=== PATIENT | female | born 1950 | race Caucasian/White ===

== ENCOUNTER 2018-06-09 15:42 | Observation (INO) ==
[2018-06-09 16:26] LABS: Basophils # 0.1 10*3/uL (0.0-0.2); Basophils % 0.7 % (0.0-0.8); Eosinophils # 0.2 10*3/uL (0.0-0.87); Eosinophils % 1.5 % (0.00-10.9); Hematocrit 41.3 VOL% (35.7-47.0); Hemoglobin 12.7 GM/DL (12.0-16.0); Immature Granulocytes % 0.5 %; Immature Granulocytes Absolute 0.05 #; Lymphocytes # 2.5 10*3/uL (1.4-4.0); Lymphocytes % 24.6 % (21.3-54.2); Mean Corpuscular HGB Conc 30.8 GM/DL (32-36); Mean Corpuscular Hemoglobin 26 PG (27-34); Mean Corpuscular Volume 85.9 FL (87-102); Mean Platelet Volume 12.5 FL (9.6-12.0); Monocytes # 0.9 10*3/uL (0.11-0.8); Monocytes % 9.3 % (1.7-12.7); Neutrophils # 6.4 10*3/uL (1.4-7.4); Neutrophils % 63.4 % (38.7-73.9); Platelet Count 447 T/CUMM (130-400); Red Blood Count 4.81 MC/CUMM (3.8-5.5); Red Cell Distribution Width 15.9 % (9.3-17.3); White Blood Count 10.1 T/CUMM (4-12)
[2018-06-09 16:47] LABS: Alanine Aminotransferase 28 U/L (13-56); Albumin 3.8 G/DL (3.4-5.0); Alkaline Phosphatase 108 U/L (45-117); Aspartate Amino Transferase 27 U/L (0-37); Blood Urea Nitrogen 63 MG/DL (7-18); Calcium 9.1 MG/DL (8.5-10.1); Glucose 137 MG/DL (74-106); Osmolality,Calculated 281.7 MOS/KG (273-304); Potassium 4.4 MMOL/L (3.5-5.1); Sodium 131 MMOL/L (136-145); Total Protein 8.3 G/DL (6.4-8.3); Troponin I < 0.015 NG/ML (0.00-0.045)
[2018-06-09] MEDS ORDERED: SODIUM CHLORIDE 0.9% 1,000 ML IV STA (18:21)
[2018-06-09 20:13] LABS: Troponin I < 0.015 NG/ML (0.00-0.045)
[2018-06-09] MEDS ORDERED: ACETAMINOPHEN 325 MG TABLET PO PRN (20:29)
[2018-06-09] MEDS ORDERED: PNEUMOCOCCAL VACCINE (13 VALENT) 0.5 ML SYRINGE IM ONE (20:48)
[2018-06-09] MEDS: HYOSCYAMINE 0.125 MG TABLET SL SCH (20:58)
[2018-06-09] MEDS: SODIUM CHLORIDE 0.9% 1,000 ML IV SCH (20:58)
[2018-06-09] MEDS ORDERED: ENOXAPARIN 30 MG/0.3 ML SYRINGE SUBCUT SCH (21:00)
[2018-06-10 00:44] LABS: Apearance,Urine Slightly Hazy (Clear); Bilirubin,Urine Negative (Negative); Blood, Urine Negative (Negative); Glucose,Urine (UA) Negative (Negative); Ketones,Urine Negative (Negative); Nitrite,Urine Negative (Negative); Protein,Urine Negative; Urine Color Yellow (Yellow); Urine Urobilinogen < 2.0 EU/DL (0.2-1.0)
[2018-06-10 00:53] LABS: WBC,Urine 0.1 /HPF (0-6)
[2018-06-10 05:07] LABS: Basophils % 0.6 % (0.0-0.8); Eosinophils # 0.2 10*3/uL (0.0-0.87); Eosinophils % 3.3 % (0.00-10.9); Hematocrit 33.8 VOL% (35.7-47.0); Immature Granulocytes % 0.6 %; Immature Granulocytes Absolute 0.04 #; Lymphocytes # 2.3 10*3/uL (1.4-4.0); Lymphocytes % 35.5 % (21.3-54.2); Mean Corpuscular HGB Conc 29.6 GM/DL (32-36); Mean Corpuscular Hemoglobin 26 PG (27-34); Mean Corpuscular Volume 87.6 FL (87-102); Mean Platelet Volume 12.8 FL (9.6-12.0); Monocytes # 0.7 10*3/uL (0.11-0.8); Monocytes % 10.9 % (1.7-12.7); Neutrophils # 3.2 10*3/uL (1.4-7.4); Neutrophils % 49.1 % (38.7-73.9); Platelet Count 305 T/CUMM (130-400); Red Blood Count 3.86 MC/CUMM (3.8-5.5); Red Cell Distribution Width 15.8 % (9.3-17.3); White Blood Count 6.4 T/CUMM (4-12)
[2018-06-10 05:27] LABS: Blood Urea Nitrogen 53 MG/DL (7-18); Glucose 90 MG/DL (74-106); Osmolality,Calculated 290.5 MOS/KG (273-304); Potassium 4.2 MMOL/L (3.5-5.1); Sodium 139 MMOL/L (136-145); Troponin I < 0.015 NG/ML (0.00-0.045)
[2018-06-10] MEDS: SODIUM CHLORIDE 0.9% 1,000 ML IV SCH (06:31)
[2018-06-10] MEDS: HYOSCYAMINE 0.125 MG TABLET SL SCH ×2 (08:58→12:27)
[2018-06-10] MEDS ORDERED: DULoxetine 30 MG CAPSULE PO SCH (09:00)
[2018-06-10] MEDS ORDERED: PANTOPRAZOLE 40 MG TABLET PO SCH (09:00)
[2018-06-10 12:44] VITALS: BP 121/48
[2018-06-15] MEDS ORDERED: ERGOCALCIFEROL 50,000 UNIT CAPSULE PO SCH (09:00)
== END 2018-06-10 14:10 | disposition home or self-care (01) ==
LOC: N.EDINP 15:42 → N.ED 15:42 → SUATTDRO 18:43 → N.2E 19:44
PROVIDERS: ADMIT Internal Medicine; ATTEND Internal Medicine

== ENCOUNTER 2018-11-25 14:01 | Inpatient (IN) ==
[2018-11-25] MEDS ORDERED: ONDANSETRON 4 MG/2 ML VIAL IV STA (14:54)
[2018-11-25] MEDS ORDERED: SODIUM CHLORIDE 0.9% 1,000 ML IV STA (14:54)
[2018-11-25] MEDS: HYDROmorphone 2 MG/1 ML VIAL IV PRN ×5 (15:09→22:30)
[2018-11-25 15:10] LABS: Basophils % 0.5 % (0.0-0.8); Eosinophils # 0.2 10*3/uL (0.0-0.87); Eosinophils % 2.2 % (0.00-10.9); Hemoglobin 8.2 GM/DL (12.0-16.0); Immature Granulocytes % 0.5 %; Immature Granulocytes Absolute 0.04 #; Lymphocytes # 1.2 10*3/uL (1.4-4.0); Lymphocytes % 16.2 % (21.3-54.2); Mean Corpuscular HGB Conc 29.3 GM/DL (32-36); Mean Corpuscular Volume 80.5 FL (87-102); Mean Platelet Volume 11.4 FL (9.6-12.0); Monocytes % 8.2 % (1.7-12.7); NRBC # 0.02 10*3/uL; Neutrophils % 72.4 % (38.7-73.9); Platelet Count 239 T/CUMM (130-400); Red Blood Count 3.48 MC/CUMM (3.8-5.5); Red Cell Distribution Width 17.7 % (9.3-17.3); White Blood Count 7.3 T/CUMM (4-12)
[2018-11-25 15:32] LABS: Alanine Aminotransferase 18 U/L (13-56); Albumin 3.3 G/DL (3.4-5.0); Alkaline Phosphatase 63 U/L (45-117); Aspartate Amino Transferase 13 U/L (0-37); Bilirubin,Total < 0.39 MG/DL (0.2-1.0); Blood Urea Nitrogen 28 MG/DL (7-18); Calcium 8.7 MG/DL (8.5-10.1); Glucose 141 MG/DL (74-106); Osmolality,Calculated 286.4 MOS/KG (273-304)
[2018-11-25] MEDS ORDERED: GLUCAGON 1 MG VIAL IM PRN (17:20)
[2018-11-25] MEDS ORDERED: DEXTROSE 50% 25 GM/50 ML VIAL IV PRN (17:20)
[2018-11-25] MEDS: SODIUM CHLORIDE 0.45% 1,000 ML IV SCH (18:56)
[2018-11-25] MEDS: CIPROFLOXACIN INJ 400 MG in PREMIX 1 EACH IV SCH (18:56)
[2018-11-25] MEDS ORDERED: MAGNESIUM SULF RIDER 4 GM in PREMIX 1 EACH IV PRN (20:00)
[2018-11-25] MEDS: HYOSCYAMINE 0.125 MG TABLET SL PRN (22:06)
[2018-11-25] MEDS: metroNIDAZOLE INJ 500 MG in PREMIX 1 EACH IV SCH (22:08)
[2018-11-26] MEDS: HYDROmorphone 2 MG/1 ML VIAL IV PRN ×4 (02:05→19:55)
[2018-11-26] MEDS: metroNIDAZOLE INJ 500 MG in PREMIX 1 EACH IV SCH ×4 (02:07→19:57)
[2018-11-26] MEDS: HYOSCYAMINE 0.125 MG TABLET SL PRN ×3 (06:13→19:56)
[2018-11-26] MEDS: SODIUM CHLORIDE 0.45% 1,000 ML IV SCH ×2 (06:16→13:59)
[2018-11-26 06:24] LABS: Basophils % 0.3 % (0.0-0.8); Eosinophils # 0.2 10*3/uL (0.0-0.87); Eosinophils % 2.9 % (0.00-10.9); Hematocrit 25.8 VOL% (35.7-47.0); Hemoglobin 7.6 GM/DL (12.0-16.0); Immature Granulocytes % 0.4 %; Immature Granulocytes Absolute 0.03 #; Lymphocytes # 1.1 10*3/uL (1.4-4.0); Lymphocytes % 16.2 % (21.3-54.2); Mean Corpuscular HGB Conc 29.5 GM/DL (32-36); Mean Corpuscular Volume 80.9 FL (87-102); Monocytes % 9.1 % (1.7-12.7); Neutrophils % 71.1 % (38.7-73.9); Platelet Count 232 T/CUMM (130-400); Red Blood Count 3.19 MC/CUMM (3.8-5.5)
[2018-11-26 06:28] LABS: Folate > 24.0 NG/ML (5.4-24.0); Vitamin B12 265 PG/ML (211-911)
[2018-11-26 06:28] LABS: % Iron Saturation 8.4 % (18-50); Ferritin 2.9 ng/ml (8-252); Hypochromasia 1+; Platelet Estimate Adequate
[2018-11-26] MEDS: CIPROFLOXACIN INJ 400 MG in PREMIX 1 EACH IV SCH ×2 (07:53→17:26)
[2018-11-26] MEDS: FAMOTIDINE 20 MG/2 ML VIAL IV SCH (09:34)
[2018-11-27] MEDS: HYDROmorphone 2 MG/1 ML VIAL IV PRN ×5 (00:12→21:47)
[2018-11-27] MEDS: metroNIDAZOLE INJ 500 MG in PREMIX 1 EACH IV SCH ×4 (02:32→23:54)
[2018-11-27] MEDS: SODIUM CHLORIDE 0.45% 1,000 ML IV SCH ×3 (02:33→15:51)
[2018-11-27] MEDS: HYOSCYAMINE 0.125 MG TABLET SL PRN ×4 (04:19→21:55)
[2018-11-27] MEDS: CIPROFLOXACIN INJ 400 MG in PREMIX 1 EACH IV SCH ×2 (05:31→17:05)
[2018-11-27 05:46] LABS: Basophils % 0.4 % (0.0-0.8); Eosinophils # 0.2 10*3/uL (0.0-0.87); Eosinophils % 2.1 % (0.00-10.9); Hematocrit 28.3 VOL% (35.7-47.0); Immature Granulocytes % 0.4 %; Immature Granulocytes Absolute 0.04 #; Lymphocytes % 11.4 % (21.3-54.2); Mean Corpuscular HGB Conc 28.3 GM/DL (32-36); Mean Corpuscular Volume 81.6 FL (87-102); Mean Platelet Volume 11.9 FL (9.6-12.0); Monocytes % 6.7 % (1.7-12.7); Platelet Count 232 T/CUMM (130-400); Red Blood Count 3.47 MC/CUMM (3.8-5.5); Red Cell Distribution Width 17.8 % (9.3-17.3)
[2018-11-27 06:10] LABS: Hypochromasia 1+; Platelet Estimate Adequate
[2018-11-27 06:15] LABS: Alanine Aminotransferase 14 U/L (13-56); Albumin 2.7 G/DL (3.4-5.0); Alkaline Phosphatase 65 U/L (45-117); Aspartate Amino Transferase 15 U/L (0-37); Bilirubin,Total < 0.39 MG/DL (0.2-1.0); Blood Urea Nitrogen 11 MG/DL (7-18); Calcium 7.7 MG/DL (8.5-10.1); Glucose 107 MG/DL (74-106); Osmolality,Calculated 271.8 MOS/KG (273-304); Total Protein 6.1 G/DL (6.4-8.3)
[2018-11-27] MEDS: POTASSIUM CHLORIDE RIDER 10 MEQ in PREMIX 1 EACH IV PRN ×5 (09:26→21:50)
[2018-11-27] MEDS: FAMOTIDINE 20 MG/2 ML VIAL IV SCH (09:26)
[2018-11-27] MEDS ORDERED: ALBUTEROL 0.63 MG/3 ML NEB RESP TX PRN (11:02)
[2018-11-27] MEDS ORDERED: FUROSEMIDE 20 MG/2 ML VIAL IV ONE (12:16)
[2018-11-28] MEDS ORDERED: ACETAMINOPHEN 325 MG TABLET PO SCH ×2 (05:30→09:00)
[2018-11-28] MEDS: SODIUM CHLORIDE 0.45% 1,000 ML IV SCH ×2 (05:39→08:09)
[2018-11-28] MEDS: metroNIDAZOLE INJ 500 MG in PREMIX 1 EACH IV SCH ×3 (05:40→17:36)
[2018-11-28] MEDS ORDERED: ACETAMINOPHEN 325 MG TABLET PO PRN (06:30)
[2018-11-28] MEDS: HYDROmorphone 2 MG/1 ML VIAL IV PRN ×4 (06:38→21:53)
[2018-11-28] MEDS: HYOSCYAMINE 0.125 MG TABLET SL PRN ×3 (06:39→17:35)
[2018-11-28] MEDS: CIPROFLOXACIN INJ 400 MG in PREMIX 1 EACH IV SCH (06:42)
[2018-11-28 06:49] LABS: Basophils % 0.2 % (0.0-0.8); Eosinophils # 0.1 10*3/uL (0.0-0.87); Eosinophils % 1.4 % (0.00-10.9); Hematocrit 25.7 VOL% (35.7-47.0); Hemoglobin 7.3 GM/DL (12.0-16.0); Immature Granulocytes % 0.4 %; Immature Granulocytes Absolute 0.04 #; Lymphocytes # 1.2 10*3/uL (1.4-4.0); Lymphocytes % 13.1 % (21.3-54.2); Mean Corpuscular HGB Conc 28.4 GM/DL (32-36); Mean Corpuscular Volume 81.3 FL (87-102); Mean Platelet Volume 12.1 FL (9.6-12.0); Monocytes % 9.6 % (1.7-12.7); NRBC # 0.02 10*3/uL; Neutrophils % 75.3 % (38.7-73.9); Platelet Count 244 T/CUMM (130-400); Red Blood Count 3.16 MC/CUMM (3.8-5.5); Red Cell Distribution Width 18.1 % (9.3-17.3); White Blood Count 9.3 T/CUMM (4-12)
[2018-11-28 07:14] LABS: Anisocytosis 2+; Platelet Estimate Normal; Poikilocytosis 1+
[2018-11-28 07:16] LABS: Calcium 8.3 MG/DL (8.5-10.1); Osmolality,Calculated 273.8 MOS/KG (273-304)
[2018-11-28] MEDS: POTASSIUM CHLORIDE RIDER 10 MEQ in PREMIX 1 EACH IV PRN ×4 (10:30→19:42)
[2018-11-28] MEDS: FAMOTIDINE 20 MG/2 ML VIAL IV SCH (10:30)
[2018-11-28] MEDS: MAGNESIUM SULF RIDER 2 GM in PREMIX 1 EACH IV PRN (10:30)
[2018-11-28] MEDS ORDERED: FUROSEMIDE 20 MG/2 ML VIAL IV ONE (15:00)
[2018-11-28] MEDS: ONDANSETRON 4 MG/2 ML VIAL IV PRN (15:21)
[2018-11-28 15:26] LABS: Apearance,Urine CLEAR (Clear); Bacteria,Urine Occasional /HPF (Few); Bilirubin,Urine Negative (Negative); Blood, Urine Negative (Negative); Glucose,Urine (UA) Negative (Negative); Hyaline Casts,Urine 23 /LPF (0-3); Ketones,Urine Negative (Negative); Mucus,Urine Occasional /LPF (Occasional); Nitrite,Urine Negative (Negative); Protein,Urine Negative; RBC,Urine 1 /HPF (0-4); Squamous Epithelial Cell,Urine Occasional /HPF (0-10); Urine Color Yellow (Yellow); Urine Urobilinogen < 2.0 EU/DL (0.2-1.0)
[2018-11-28] MEDS: ALBUTEROL 0.63 MG/3 ML NEB RESP TX SCH (19:01)
[2018-11-28] MEDS: LEVOFLOXACIN INJ 750 MG in PREMIX 1 EACH IV SCH (21:48)
[2018-11-29] MEDS: metroNIDAZOLE INJ 500 MG in PREMIX 1 EACH IV SCH ×4 (00:32→17:11)
[2018-11-29] MEDS: ALBUTEROL 0.63 MG/3 ML NEB RESP TX SCH ×4 (01:57→19:04)
[2018-11-29] MEDS: HYDROmorphone 2 MG/1 ML VIAL IV PRN ×4 (02:06→22:39)
[2018-11-29] MEDS: HYOSCYAMINE 0.125 MG TABLET SL PRN ×3 (02:09→17:11)
[2018-11-29 05:23] LABS: Basophils % 0.4 % (0.0-0.8); Eosinophils # 0.3 10*3/uL (0.0-0.87); Eosinophils % 3.6 % (0.00-10.9); Hematocrit 24.8 VOL% (35.7-47.0); Hemoglobin 7.1 GM/DL (12.0-16.0); Immature Granulocytes % 0.5 %; Immature Granulocytes Absolute 0.04 #; Mean Corpuscular HGB Conc 28.6 GM/DL (32-36); Mean Corpuscular Volume 82.1 FL (87-102); Mean Platelet Volume 12.3 FL (9.6-12.0); Monocytes % 11.1 % (1.7-12.7); NRBC # 0.02 10*3/uL; Neutrophils % 71.4 % (38.7-73.9); Platelet Count 232 T/CUMM (130-400); Red Blood Count 3.02 MC/CUMM (3.8-5.5); Red Cell Distribution Width 18.6 % (9.3-17.3); White Blood Count 7.8 T/CUMM (4-12)
[2018-11-29 05:43] LABS: Calcium 8.1 MG/DL (8.5-10.1); Osmolality,Calculated 275.7 MOS/KG (273-304)
[2018-11-29 06:05] LABS: Hypochromasia 1+; Ovalocytes 1+; Platelet Estimate Normal
[2018-11-29 06:06] LABS: Polychromasia Few
[2018-11-29] MEDS: FAMOTIDINE 20 MG/2 ML VIAL IV SCH (10:15)
[2018-11-29] MEDS: POTASSIUM CHLORIDE RIDER 10 MEQ in PREMIX 1 EACH IV PRN ×4 (10:15→19:00)
[2018-11-29] MEDS: MAGNESIUM SULF RIDER 2 GM in PREMIX 1 EACH IV PRN (10:15)
[2018-11-29] MEDS ORDERED: diphenhydrAMINE CAP 25 MG CAPSULE PO PRN (11:21)
[2018-11-29] MEDS: FERROUS SULFATE 325 MG TABLET PO SCH ×2 (12:36→22:36)
[2018-11-29] MEDS: CYANOCOBALAMIN 500 MCG TABLET PO SCH (12:36)
[2018-11-29] MEDS: LEVOFLOXACIN INJ 750 MG in PREMIX 1 EACH IV SCH (22:32)
[2018-11-30 00:54] LABS: Basophils % 0.3 % (0.0-0.8); Eosinophils # 0.3 10*3/uL (0.0-0.87); Eosinophils % 4.8 % (0.00-10.9); Hemoglobin 7.1 GM/DL (12.0-16.0); Immature Granulocytes % 0.7 %; Immature Granulocytes Absolute 0.04 #; Lymphocytes # 0.9 10*3/uL (1.4-4.0); Lymphocytes % 15.1 % (21.3-54.2); Mean Corpuscular HGB Conc 28.4 GM/DL (32-36); Mean Corpuscular Volume 82.2 FL (87-102); Mean Platelet Volume 11.9 FL (9.6-12.0); Monocytes % 11.3 % (1.7-12.7); NRBC # 0.03 10*3/uL; Neutrophils % 67.8 % (38.7-73.9); Platelet Count 251 T/CUMM (130-400); Red Blood Count 3.04 MC/CUMM (3.8-5.5); White Blood Count 6.1 T/CUMM (4-12)
[2018-11-30 01:16] LABS: Calcium 8.6 MG/DL (8.5-10.1); Osmolality,Calculated 281.3 MOS/KG (273-304)
[2018-11-30] MEDS: metroNIDAZOLE INJ 500 MG in PREMIX 1 EACH IV SCH ×3 (01:29→13:42)
[2018-11-30] MEDS: ALBUTEROL 0.63 MG/3 ML NEB RESP TX SCH ×4 (01:42→18:50)
[2018-11-30 02:45] LABS: Platelet Estimate Normal; Polychromasia Few
[2018-11-30] MEDS: POTASSIUM CHLORIDE RIDER 10 MEQ in PREMIX 1 EACH IV PRN ×3 (04:18→10:45)
[2018-11-30] MEDS: HYDROmorphone 2 MG/1 ML VIAL IV PRN ×2 (06:21→11:33)
[2018-11-30] MEDS: FAMOTIDINE 20 MG/2 ML VIAL IV SCH (08:37)
[2018-11-30] MEDS: CYANOCOBALAMIN 500 MCG TABLET PO SCH (08:37)
[2018-11-30] MEDS: FERROUS SULFATE 325 MG TABLET PO SCH ×2 (08:37→21:25)
[2018-11-30] MEDS: ONDANSETRON 4 MG/2 ML VIAL IV PRN (12:20)
[2018-11-30] MEDS ORDERED: HYDROmorphone 2 MG/1 ML VIAL IV PRN (14:45)
[2018-12-01] MEDS: ALBUTEROL 0.63 MG/3 ML NEB RESP TX SCH ×2 (00:40→07:59)
[2018-12-01] MEDS: LEVOFLOXACIN 750 MG TABLET PO SCH ×2 (07:57→09:16)
[2018-12-01] MEDS: FERROUS SULFATE 325 MG TABLET PO SCH ×2 (07:57→09:16)
[2018-12-01] MEDS: CYANOCOBALAMIN 500 MCG TABLET PO SCH ×2 (07:57→09:16)
[2018-12-01] MEDS: FAMOTIDINE 20 MG/2 ML VIAL IV SCH ×2 (07:58→09:16)
[2018-12-01 11:34] VITALS: BP 119/56
== END 2018-12-01 13:42 | disposition home or self-care (01) | DRG 391 ==
LOC: N.ED 14:01 → N.EDINP 17:38 → SUATTDRO 17:38 → N.5E 18:26
PROVIDERS: ADMIT Internal Medicine Nephrology; ATTEND Internal Medicine

== ENCOUNTER 2021-06-19 15:37 | Observation (INO) ==
[2021-06-19] MEDS ORDERED: HYDROmorphone 2 MG/1 ML VIAL IV STA (21:26)
[2021-06-19] MEDS ORDERED: PANTOPRAZOLE 40 MG VIAL IV STA (21:26)
[2021-06-19] MEDS ORDERED: SODIUM CHLORIDE 0.9% 1,000 ML IV STA (21:26)
[2021-06-19] MEDS ORDERED: ONDANSETRON 4 MG/2 ML VIAL IV STA (21:26)
[2021-06-19 23:21] LABS: Basophils % 0.5 % (0.0-0.8); Eosinophils # 0.1 10*3/uL (0.0-0.87); Hematocrit 45.4 VOL% (35.7-47.0); Hemoglobin 14.5 GM/DL (12.0-16.0); Immature Granulocytes % 0.3 %; Immature Granulocytes Absolute 0.03 #; Lymphocytes # 2.2 10*3/uL (1.4-4.0); Lymphocytes % 25.3 % (21.3-54.2); Mean Corpuscular HGB Conc 31.9 GM/DL (32-36); Mean Corpuscular Volume 83.2 FL (87-102); Mean Platelet Volume 11.3 FL (9.6-12.0); Monocytes % 7.7 % (1.7-12.7); Neutrophils % 65.2 % (38.7-73.9); Platelet Count 354 T/CUMM (130-400); Red Blood Count 5.46 MC/CUMM (3.8-5.5); White Blood Count 8.7 T/CUMM (4-12)
[2021-06-19 23:40] LABS: Alanine Aminotransferase 37 U/L (13-56); Albumin 4.3 G/DL (3.4-5.0); Alkaline Phosphatase 102 U/L (45-117); Amylase 29 U/L (25-115); Aspartate Amino Transferase 28 U/L (0-37); Bilirubin,Total < 0.39 MG/DL (0.20-1.00); Blood Urea Nitrogen 49 MG/DL (7-18); Calcium 10.2 MG/DL (8.5-10.1); Carbon Dioxide 22 MMOL/L (21-32); Estimated Glom Filtration Rate 22 ML/MIN; Glucose 147 MG/DL (74-106); Osmolality,Calculated 285.1 MOS/KG (273-304); Potassium 3.7 MMOL/L (3.5-5.1); Sodium 135 MMOL/L (136-145); Total Protein 8.2 G/DL (6.4-8.2)
[2021-06-19 23:41] LABS: Bacteria,Urine Occasional /HPF (Few); Bilirubin,Urine Negative (Negative); Blood, Urine Negative (Negative); Glucose,Urine (UA) Negative (Negative); Hyaline Casts,Urine 13 /LPF (0-3); Ketones,Urine 5 mg/dL (Negative); Mucus,Urine Occasional /LPF (Occasional); Nitrite,Urine Negative (Negative); Protein,Urine 30 MG/DL; RBC,Urine 2 /HPF (0-4); Squamous Epithelial Cell,Urine Occasional /HPF (0-10); Urine Appearance Slightly Hazy (Clear); Urine Color Amber (Yellow); Urine Specific Gravity 1.024 (1.001-1.035); Urine Urobilinogen < 2.0 EU/DL (<2.0)
[2021-06-20] MEDS ORDERED: PROMETHAZINE 25 MG/1 ML VIAL ONE (01:08)
[2021-06-20] MEDS ORDERED: PROMETHAZINE 25 MG/1 ML VIAL IM STA (01:08)
[2021-06-20 01:49] LABS: Platelet Estimate Increased
[2021-06-20] MEDS ORDERED: DEXTROSE 10% 250 ML BAG IV PRN (03:06)
[2021-06-20] MEDS ORDERED: GLUCAGON 1 MG VIAL IM PRN (03:06)
[2021-06-20] MEDS ORDERED: ACETAMINOPHEN 325 MG TABLET PO PRN (03:06)
[2021-06-20] MEDS: PIPERACILLIN/TAZOBACTAM 3,375 MG in SODIUM CHLORIDE 0.9% 100 ML IV SCH ×3 (05:27→21:04)
[2021-06-20 05:49] LABS: Basophils % 0.2 % (0.0-0.8); Eosinophils % 0.3 % (0.00-10.9); Hematocrit 40.2 VOL% (35.7-47.0); Hemoglobin 12.5 GM/DL (12.0-16.0); Immature Granulocytes % 0.4 %; Immature Granulocytes Absolute 0.04 #; Lymphocytes # 1.5 10*3/uL (1.4-4.0); Lymphocytes % 13.8 % (21.3-54.2); Mean Corpuscular HGB Conc 31.1 GM/DL (32-36); Mean Corpuscular Volume 86.5 FL (87-102); Mean Platelet Volume 11.4 FL (9.6-12.0); Neutrophils % 80.3 % (38.7-73.9); Platelet Count 297 T/CUMM (130-400); Red Blood Count 4.65 MC/CUMM (3.8-5.5)
[2021-06-20 06:15] LABS: Alanine Aminotransferase 34 U/L (13-56); Albumin 3.5 G/DL (3.4-5.0); Alkaline Phosphatase 84 U/L (45-117); Aspartate Amino Transferase 26 U/L (0-37); Bilirubin,Total < 0.39 MG/DL (0.20-1.00); Blood Urea Nitrogen 47 MG/DL (7-18); Carbon Dioxide 25 MMOL/L (21-32); Estimated Glom Filtration Rate 22 ML/MIN; Glucose 112 MG/DL (74-106); Osmolality,Calculated 291.4 MOS/KG (273-304); Potassium 4.1 MMOL/L (3.5-5.1); Sodium 140 MMOL/L (136-145); Total Protein 7.3 G/DL (6.4-8.2)
[2021-06-20] MEDS: INSULIN REGULAR 100 UNIT/ML SUBCUT SCH ×3 (06:34→18:02)
[2021-06-20] MEDS: SODIUM CHLORIDE 0.9% 1,000 ML IV SCH ×3 (06:35→21:03)
[2021-06-20] MEDS: PANTOPRAZOLE 40 MG VIAL IV SCH (09:18)
[2021-06-20 10:32] LABS: PT Patient Result 10.9 SECS (10.5-12.0)
[2021-06-20] MEDS: HYDROmorphone 2 MG/1 ML VIAL IV PRN ×2 (10:51→17:43)
[2021-06-20] MEDS ORDERED: ALBUTEROL 2.5 MG/3 ML NEB RESP TX PRN (11:02)
[2021-06-20] MEDS ORDERED: CYANOCOBALAMIN 1000 MCG/1 ML VIAL IM SCH (11:30)
[2021-06-20] MEDS: ONDANSETRON 4 MG/2 ML VIAL IV PRN (20:02)
[2021-06-20] MEDS ORDERED: QUEtiapine 25 MG TABLET PO SCH (21:00)
[2021-06-20] MEDS ORDERED: BENZONATATE 100 MG CAPSULE PO PRN (21:00)
[2021-06-20] MEDS ORDERED: PANTOPRAZOLE 20 MG TABLET PO SCH (21:00)
[2021-06-21] MEDS: HYDROmorphone 2 MG/1 ML VIAL IV PRN (01:03)
[2021-06-21] MEDS: INSULIN REGULAR 100 UNIT/ML SUBCUT SCH ×4 (01:26→18:10)
[2021-06-21] MEDS: SODIUM CHLORIDE 0.9% 1,000 ML IV SCH ×3 (03:41→18:12)
[2021-06-21] MEDS: ONDANSETRON 4 MG/2 ML VIAL IV PRN (04:02)
[2021-06-21] MEDS: PIPERACILLIN/TAZOBACTAM 3,375 MG in SODIUM CHLORIDE 0.9% 100 ML IV SCH (05:18)
[2021-06-21] MEDS: LEVOTHYROXINE 25 MCG TABLET PO SCH (06:04)
[2021-06-21] MEDS ORDERED: fentaNYL 100 MCG/2 ML VIAL ONE (07:15)
[2021-06-21] MEDS ORDERED: propofoL 200 MG/20 ML VIAL IV ONE (07:15)
[2021-06-21] MEDS ORDERED: BUPIVACAINE MPF 0.25% 30 ML VIAL ONE (07:30)
[2021-06-21] MEDS ORDERED: LIDOCAINE 1%/EPI INJ 20 ML VIAL ONE (07:30)
[2021-06-21] MEDS ORDERED: SUCCINYLCHOLINE 200 MG/10 ML VIAL ONE (07:45)
[2021-06-21] MEDS ORDERED: MIDAZOLAM 2 MG/2 ML VIAL ONE (07:49)
[2021-06-21] MEDS ORDERED: PHENYLEPHRINE 1 MG/10 ML SYRINGE IV ONE (07:58)
[2021-06-21] MEDS ORDERED: SEVOFLURANE 1 UNIT/15 MINUTE INH ONE (08:05)
[2021-06-21] MEDS ORDERED: ONDANSETRON 4 MG/2 ML VIAL ONE (08:38)
[2021-06-21] MEDS ORDERED: DEXAMETHASONE 4 MG/1 ML VIAL ONE ×2 (08:38)
[2021-06-21] MEDS: PANTOPRAZOLE 40 MG VIAL IV SCH (09:22)
[2021-06-21] MEDS: buPROPion SR 150 MG TABLET PO SCH (09:24)
[2021-06-21] MEDS: DULoxetine 30 MG CAPSULE PO SCH (09:25)
[2021-06-21] MEDS: PRIMIDONE 50 MG TABLET PO SCH (12:06)
[2021-06-21] MEDS: MONTELUKAST 10 MG TABLET PO SCH (12:06)
[2021-06-22] MEDS: INSULIN REGULAR 100 UNIT/ML SUBCUT SCH ×3 (00:26→11:28)
[2021-06-22] MEDS: ONDANSETRON 4 MG/2 ML VIAL IV PRN ×2 (01:53→09:37)
[2021-06-22] MEDS: HYDROmorphone 2 MG/1 ML VIAL IV PRN ×2 (01:53→09:37)
[2021-06-22] MEDS: SODIUM CHLORIDE 0.9% 1,000 ML IV SCH ×2 (04:35→11:26)
[2021-06-22] MEDS: LEVOTHYROXINE 25 MCG TABLET PO SCH (05:50)
[2021-06-22] MEDS: buPROPion SR 150 MG TABLET PO SCH (09:30)
[2021-06-22] MEDS: MONTELUKAST 10 MG TABLET PO SCH (09:30)
[2021-06-22] MEDS: PRIMIDONE 50 MG TABLET PO SCH (09:30)
[2021-06-22] MEDS: PANTOPRAZOLE 40 MG VIAL IV SCH (09:30)
[2021-06-22] MEDS: DULoxetine 30 MG CAPSULE PO SCH (09:30)
[2021-06-22 15:44] VITALS: BP 99/43
== END 2021-06-22 15:50 | disposition home or self-care (01) ==
LOC: N.EDINP 15:37 → N.ED 15:37 → N.3E 06-20 05:26
PROVIDERS: ADMIT Surgery; ATTEND Surgery